=== PATIENT | female | born 1995 | race Caucasian/White ===

== ENCOUNTER 2023-02-19 06:07 | Day surgery (SDC) | payer OTHER, SELFPAY ==
[2023-02-19] VITALS (9 sets, daily range): BP systolic 114–141; BP diastolic 69–87; PULSE 77–94; RESP 16–18; TEMP 36.2–36.4; O2SAT 96–100; BMI 62.4
[2023-02-19 06:37] LABS: Ur HCG Qualitative* Negative (Negative)
--- NOTE | 2023-02-19 07:16 | CRLHL7_ITS ---
For Patients: As a result of the Cures Act, medical imaging exams and procedure reports are released immediately into your electronic medical record. You may view this report before your referring provider. If you have questions, please contact your health care provider. Indication: NEXPLANON REMOVAL Technique: Three fluoroscopic images of the left upper arm. Fluoroscopic time 14.8 seconds. IMPRESSION: Fluoroscopic guidance for contraceptive device removal. Dictated by Mele Patel MD @ 02/19/2023 9:45:21 AM (Electronically Signed)
--- NOTE | 2023-02-19 07:22 | P.GSOP_ITS ---
Operative Note Pre-op diagnosis: 1. Left upper arm Nexplanon not Able to be removed in clinic. Post-op diagnosis: same Type of Procedure: 1. Left upper arm foreign body excision ( Nexplanon)With fluoroscopy guidance. 2. Placement of a new Nexplanon in the left upper arm. Indications: 27-year-old female was seen in clinic for removal of Nexplanon that was placed several years ago. Patient has Nexplanon placed in clinic. However, when she presented to her primary care doctor for removal of Nexplanon, this was not palpable. An x-ray was obtained that showed the Nexplanon was in soft tissue near the left axilla. It was not palpable in clinic. Given patient's clinical history and desire to have Nexplanon removed, removal of Nexplanon under fluoroscopy was recommended. Patient also desired placement of a new Nexplanon. The risks of the procedure such as infection and bleeding were discussed with the patient, and she agreed to proceed. Procedure Description: After discussing the risks and benefits of the procedure, the patient signed informed consent.? The operative site was marked and the patient was brought to the operating room and placed on the operating table in supine position.? Care was taken to pad the patient's pressure points. The operative site was then prepped and draped in the usual sterile fashion.? A time-out was then performed. A C-arm was brought onto the field and the position of left upper arm Nexplanon was identified. This was located close to the left axilla in the medial posterior arm. Local anesthetic was injected over the area where the Nexplanon was suspected to be. Subcutaneous fat was divided with cautery. The fiber sheath overlying the Nexplanon was grasped with a Clementina clamp. Nexplanon was then excised with cautery. This was removed and given to the patient. hemostasis was achieved with cautery. The surgical incision was then closed with interrupted 3-0 Vicryl sutures. The skin was closed with a running 4-0 Monocryl stitch. Steri-Strips and sterile pressure dressing were placed over the incision. A new Nexplanon was then placed in the medial distal left upper arm several cm proximal to the left elbow joint. This was performed by [facility] business center manager. Local anesthetic was injected in the skin and Nexplanon was deployed in the dermis. Nexplanon was palpable. Pressure dressing was placed over the Nexplanon. All counts were correct at the end of the case. ? The patient was then woken and transported to the recovery area in stable condition. ? The patient tolerated the procedure well. Findings: Old Nexplanon was found in the proximal left upper arm near the axilla. Anesthesia: local Surgeon: Kunal Guerrero MD Estimated blood loss (mL): 2 Condition: stable Disposition: same day Date of procedure: 02/19/23
[2023-02-19] MEDS: CEFAZOLIN 1 GM inj 3 GM IVP (07:27)
[2023-02-19] MEDS: LACTATED RINGERS 1000 ML 1,000 ML 100 ML IV (07:30)
[2023-02-19] MEDS: BUPIVACAINE 0.25% 30 ML 20 ML INJECTION (08:28)
== END 2023-02-19 08:46 | disposition home or self-care (01) ==
PROVIDERS: PCP Student in an Organized Health Care Education/Training Program; Visit Provider Surgery
PROC: (CPT 11983; principal; 2023-02-19 07:30)
DX: Z30.46 Encounter for surveillance of implantable subdermal contraceptive (principal); T85.698A Other mechanical complication of other specified internal prosthetic devices, implants and grafts, initial encounter
CPT/HCPCS: 11983; 73060; 76000; 81025; J0665; J0690; J7120; J7298

== ENCOUNTER 2023-02-28 19:43 | Outpatient (CLI) | payer OTHER, SELFPAY | END 2023-02-28 19:44 | disposition home or self-care (01) | LOC: NFLDUCREF 19:43 | PROVIDERS: PCP Student in an Organized Health Care Education/Training Program; Visit Provider Nurse Practitioner Family | DX: M79.89 Other specified soft tissue disorders (principal) | CPT/HCPCS: 85379 ==